=== PATIENT | male | born 1955 | race Caucasian/White ===

== ENCOUNTER 2017-05-01 20:04 | Emergency (ER) | payer OTHER ==
[~2017-05-01] VITALS: Ht 175.3 cm; Wt 2.5 kg
[~2017-05-01 20:04] MED LIST: ACCOLATE20 MG PO; ALBUTEROL; ALLERGY ME12.5 MG/5; AMOXIL500 MG PO; ATACAND16 MG PO; AUGMENTIN875 MG PO; BACITRACIN30 GM TOP; BACTRIM DS TABL1 TA1 PO; BACTRIM DS TABL1 TAB PO; BACTROBAN22 GM TP; BENZONATATE PO; BLOOD PRESSURE MED PO; BP MED; CATAPRES-TTS-20.2 MG PO; CETIRIZINE HCL10 MG PO; CLARITIN10 MG PO; CLEOCIN HCL300 M1 PO; COMBIVENT U/D3 ML INH; CORTISPORIN-TC10 ML OT; COZAAR100 MG PO; DIABETES MED; FOLIC ACID1 MG PO; HIGH BLOOD PRESS MED; HYDROCODONE-APA1 T56 PO; HYDROXYZINE HCL50 MG PO; IBUPROFEN800 MG PO; IRON325 ( 651 PO; KEFLEX PO; LANTUS100 U/ML; LANTUS100 U/ML SUBQ; LIBRIUM25 MG PO; LORTAB 5/500 TA1 TA1 PO; LOSARTAN POTAS100 MG PO; LOVENOX40 MG/0.4 INJ; MAPAP325 M1 PO; METFORMIN PO; METOPROLOL TAR25 MG PO; NORCO1 TAB 10/3 DOB; PAXIL PO; PERIACTIN4 MG PO; PREDNISONE PO; PRILOSEC PO; PRILOSEC20 MG PO; PRILOSEC40 MG PO; TEGRETOL PO; THIAMINE HCL100 M1 PO; TOPIRAMATE50 MG; UNKNOWN BP MED; VENTOLIN5 MG/ML PO; VICODIN 5/500 T1 TAB PO; VISTARIL50 MG PO; VITAMIN C500 M1 PO; [UNRECOGNIZED DRUG - OTHER]; [UNRECOGNIZED DRUG - OTHER]
== END 2017-05-01 22:30 | disposition left against medical advice (07) ==
LOC: CED 20:04
DX: Z53.21 Procedure and treatment not carried out due to patient leaving prior to being seen by health care provider (principal)